=== PATIENT | male | born 1960 | race Caucasian/White ===

== ENCOUNTER → 2022-09-14 08:16 | Outpatient (CLI) | payer OTHER, SELFPAY ==
--- NOTE | ~2022-09-14 | XR_ITS ---
Clinical Indication: Shortness of breath PA and lateral views of the chest: Comparison: None Findings: The lungs are clear, without evidence of focal consolidation or pleural effusion. Cardiome diastinal silhouette is within normal limits. There is mild prominence of the central pulmonary vascu lature. Bones and soft tissues are unremarkable. Impression: Mildly prominent central pulmonary vasculature. Consider pulmonary artery hypertension or minimal vivi tral venous congestive change. Reviewed, dictated and finalized at location M. Impression: Mildly prominent central pulmonary vasculature. Consider pulmonary artery hyper tension or minimal central venous congestive change.
== END ==
PROVIDERS: PCP Nurse Practitioner Family; Visit Provider Nurse Practitioner Family
DX: R06.02 Shortness of breath (principal)
CPT/HCPCS: 71046